=== PATIENT | male | born 1950 | race Caucasian/White ===

== ENCOUNTER 2021-08-04 09:00 | Outpatient (RCR) | payer MEDICARE ==
[~2021-08-04 09:00] MED LIST: AMLODIPINE BESY10 MG PO; ASPIRIN81 MG PO; ATENOLOL50 MG PO; CARDURA2 MG PO; HYDRALAZINE HCL25 MG PO; OMEGA-3 FISH1000 MG PO; SPIRONOLACTONE25 MG PO; TRICOR145 MG PO; ZESTRIL10 MG PO; folic acid PO; iron PO
== END 2021-08-09 ==
LOC: PT 09:00
PROVIDERS: ATTEND Physician Assistant
DX: Z47.1 Aftercare following joint replacement surgery (principal); Z96.651 Presence of right artificial knee joint

== ENCOUNTER → 2021-09-09 | Outpatient (RCR) | payer MEDICARE | LOC: PT 08-13 10:55 | PROVIDERS: ATTEND Physician Assistant | DX: Z47.1 Aftercare following joint replacement surgery (principal); Z96.651 Presence of right artificial knee joint; M25.561 Pain in right knee; M25.661 Stiffness of right knee, not elsewhere classified; R26.2 Difficulty in walking, not elsewhere classified; M62.81 Muscle weakness (generalized) | CPT/HCPCS: 97139 ==

== ENCOUNTER 2021-10-03 10:00 | Outpatient (RCR) | payer MEDICARE | END 2021-10-09 | LOC: PT 10:00 | PROVIDERS: ATTEND Physician Assistant | DX: Z47.1 Aftercare following joint replacement surgery (principal); Z96.651 Presence of right artificial knee joint | CPT/HCPCS: 97139 ==

== ENCOUNTER 2023-11-11 13:26 | Emergency (ER) | payer MEDICARE ==
[~2023-11-11] VITALS: Ht 175.3 cm; Wt 85.7 kg
[2023-11-11 13:33] VITALS: TEMP 98
[2023-11-11] MEDS: Morphine 4mg INJECTION 4 MG/ML INJ IV ONE (15:37)
[2023-11-11 15:54] LABS: BASOPHILS % 0.2 % (0.0-1.0); EOSINOPHILS # (AUTO) 0.1 (0.0-0.4); EOSINOPHILS % 0.5 % (0.0-6.0); HEMOGLOBIN 10.7 g/dL (14.0-18.0); LYMPHOCYTES # (AUTO) 0.8 (1.0-3.2); LYMPHOCYTES % 6.3 % (18.0-39.1); MEAN CORPUSCULAR HEMOGLOBIN 30.1 pg (28-32); MEAN CORPUSCULAR HGB CONC 32.4 g/dL (31-35); MONOCYTES # (AUTO) 0.9 (0.2-0.8); MONOCYTES % 7.2 % (4.4-11.3); NEUTROPHILS # (AUTO) 10.9 (2.1-6.9); NEUTROPHILS % 85.3 % (38.7-80.0); PLATELET COUNT 269 x10e3/uL (140-360); RED BLOOD COUNT 3.55 x10e6/uL (4.3-5.7); RED CELL DISTRIBUTION WIDTH 13.1 % (11.7-14.4); WHITE BLOOD COUNT 12.79 x10e3/uL (4.8-10.8)
[2023-11-11 16:03] LABS: ANION GAP 15.3 mmol/L (8-16); CALCIUM 9.9 mg/dL (8.4-10.2); CREATININE, SERUM 2.12 mg/dL (0.72-1.25); POTASSIUM 4.3 mmol/L (3.5-5.1)
[2023-11-11 17:48] VITALS: PULSE 50; RESP 16; O2SAT 98
== END 2023-11-11 17:50 | disposition other institution (70) ==
LOC: ER 13:54
DX: S72.092A Other fracture of head and neck of left femur, initial encounter for closed fracture (principal); W10.8XXA Fall (on) (from) other stairs and steps, initial encounter; Y93.01 Activity, walking, marching and hiking; Y92.89 Other specified places as the place of occurrence of the external cause; I10 Essential (primary) hypertension; N28.9 Disorder of kidney and ureter, unspecified; Z85.528 Personal history of other malignant neoplasm of kidney
CPT/HCPCS: 36415; 71045; 72192; 73700; 80048; 85025; 99284; J2270